=== PATIENT | female | born 1965 | race Caucasian/White ===

== ENCOUNTER 2016-06-14 11:09 | Day surgery (SDC) | payer OTHER ==
[~2016-06-14] VITALS: Ht 167.6 cm; Wt 68.0 kg
--- NOTE | 2016-06-14 07:21 | PCM.HPANE ---
Patient Data Surgeon Admitting Provider: Attending Provider:Geronimo Ruiz MD Primary Care Physician:Sonja Lawson MD Other Provider:[facility] Reason for Visit Colon Cancer Screening Ht/WT & BMI Body Mass Index Allergies Coded Allergies: Iodine and Iodide Containing Produc (Verified Allergy, Intermediate, ) Uncoded Allergies: SHELLFISH (Allergy, Severe, NAUSEA, 04/28/15) NOVACAINE (Allergy, Unknown, UNKNOWN, 04/27/15) Past Anesthesia History Anesthesia History: Denies:: Anesthesia Reactions, Malignant Hyperthermia Diabetes History Hx Diabetes?: No MRSA MRSA: No Medications Discontinued Scripts oxyCODONE 5 Mg Tablet5 Mg PO Q4H PRN For Moderate Pain #30 TABLET Prov:Karri Ward MD 04/28/15 Polyethylene Glycol 3350 (Miralax)17 Gm Powd.pack17 Gm PO DAILY #30 Prov:Karri Ward MD 04/28/15 History History of ENT Problems?: Yes Hx of Heart Problems?: No Hx of Respiratory Problem?: Yes Respiratory History: Positive for:: Asthma (MILD-HX OF) Denies:: Use of C-PAP Machine Hx Neurologic Problems?: No Hx of GI Problems?: Yes Hx of Problems?: No Female Hx: Denies:: Currently (S/P C/S X2) Skin History: Denies:: History Skin Disorders? Pressure Ulcers Hx Musculoskeletal Problems?: Yes Musculoskeletal History: Positive for:: Musculoskeletal Trauma (S/P FOOT RPR) Hx of Psycho/Social Problems?: Yes Psycho Social History: Positive for:: Anxiety (GENERAL ANXIETY DISORDER) Hx Depression Hx Surgeries?: Yes (C/S X2,HYST,APPY TONSILLECTOMY,FOOT RPR) Hx Any Other Health Problems?: Yes Other History: Denies:: Cancer Endocrine Disease Hospitalization Thyroid Disease Hx Diabetes: No Hx Alcohol Use: Yes (MINIMAL)Hx Substance Use: No Smoking Status: Never Smoker Have You Smoked inLast 12 mo: No Stop/Bang CONOR Risk Assessment: Low Risk, <3 Yes Risk Assessment Category Category 1A: Patient has history of documented sleep apnea, and HAS NOT received any narcotic, sedative or anesthesia administration during this stay. Category 1B: Patient has history of documented sleep apnea, and HAS received any narcotic , sedative or anesthesia administration during this stay Category 2: Patient has SUSPECTED Obstructive Sleep Apnea, and HAS received any narcotic , sedative or anesthesia administration during this stay. Category 3: Patient has SUSPECTED Obstructive Sleep Apnea and HAS NOT received narcotic, sedative or anesthesia administration during this stay. Category 4: Outpatient in Procedural Areas with known sleep apnea or who screen positive for High Risk via the STOP/BANG questionnaire. Exam Exam General Appearance: Alert, Oriented X3, Cooperative, No Acute Distress HEENT/AIRWAY: MP 2 Lungs: Clear to Auscultation, Normal Air Movement Heart: Exam Unremarkable, Regular Rate/Rhythm, No Murmurs/Rubs/Gallops Plan Impression Patient chart reviewed, patient interviewed and anesthestic plan with risks, benefits, and alternatives discussed, and informed consent obtained. NPO Status: greater than 8 hours for solids and greater than 2 hours for water ASA Physical Status: ASA2 Mod Systemic Disease Anesthetic Plan: MAC Bene/Risks/Altern/Consents: Yes HP Complete Prior to Induction: Yes Edwardo Lund MD Jun 14, 2016 07:21
[~2016-06-14 11:09] MED LIST: OXYC5TAB72 PO; POLY17PO6 PO
[2016-06-14] MEDS ORDERED: Propofol 10,000 mCg/mL 20 mL Inj ONE (11:10)
[2016-06-14] MEDS ORDERED: fentaNYL-PF 50 mCg/mL 2 mL Inj ONE (11:10)
[2016-06-14 11:35] VITALS: BP 120/81; PULSE 80; RESP 16; O2SAT 98
[2016-06-14] MEDS: Lactated Ringer's 1,000 ML IV ONE ×2 (11:45→12:05)
[2016-06-14] MEDS ORDERED: Lactated Ringer's 1,000 ML IV SCH (12:13)
--- NOTE | 2016-06-14 12:14 | PCM.ANEP1 ---
Post Anesthesia Phase 1 PACU Phase 1 Assessment Vital Signs Vital Signs Date Time Temp Pulse Resp B/P Pulse Ox O2 Delivery O2 Flow Rate FiO2 06/14/16 11:35 80 16 120/81 98 Room Air Anesthetic Administered: MAC Level of Alertness: Awake, talking CORNEJO's with Equal Strength: Yes Pain: No Nausea or Vomiting: No Oxygen Delivery: Nasal Cannula Lungs: Clear to Auscultation, Normal Air Movement Edwardo Lund MD Jun 14, 2016 12:14
[2016-06-14] MEDS ORDERED: Ondansetron 2 mg/mL 2 mL Inj IVPUSH PRN (12:15)
[2016-06-14] MEDS ORDERED: MetoCLOpramide 5 mg/mL 2 mL Inj IVPUSH PRN (12:15)
[2016-06-14 12:17] VITALS: BP 95/61; PULSE 77; RESP 14; O2SAT 97
[2016-06-14 12:26] VITALS: BP 97/65; PULSE 80; RESP 14; O2SAT 99
[2016-06-14 12:29] VITALS: BP 96/75; PULSE 75; RESP 14; O2SAT 98
--- NOTE | 2016-06-14 12:37 | PCM.ANEP2 ---
Post Anesthesia Evaluation ASA/CMS Post Anesthesia VS in Patient's Normal Range?: Yes Resp Stable; Airway Patent?: Yes CV Function & Hydration Stable: Yes Mental Status Recovered?: Yes Pain control Satisfactory?: Yes N/V Control Satisfactory?: Yes Edwardo Lund MD Jun 14, 2016 12:37
--- NOTE | 2016-06-14 13:09 | ENDO ---
[address] [address] ENDOSCOPY PROCEDURE PATIENT: CONRADO GARCIA : 1965 MR#: [id number] ADMIT: 06/14/2016 JOB ID: [id number] TYPE OF OPERATION: Colonoscopy with biopsy. PREOPERATIVE DIAGNOSIS(ES): Colorectal cancer. POSTOPERATIVE DIAGNOSIS(ES): 1. A 2 mm rectal polyp, removed by cold biopsy forceps. 2. Mild sigmoid diverticulosis. ANESTHESIA: Monitored anesthesia care. COMPLICATIONS: None. BLOOD LOSS: Minimal. DESCRIPTION OF PROCEDURE: After risks and benefits explained to the patient, informed consent was obtained. After anesthesia administered, colonoscope was then inserted from the rectum to the cecum. Mucosa carefully examined. Prep of the patient was excellent. After the procedure was done, the scope withdrawn, procedure terminated. FINDINGS: Upon inspection of the anus, no masses, hemorrhoids, ulcers, fissures that were seen. Throughout the entire examination, there was a 2 mm rectal polyp, removed by cold biopsy forceps. There was also some mild sigmoid diverticulosis. Retroflexion was normal. IMPRESSIONS: 1. A 2 mm rectal polyp, removed by cold biopsy forceps. 2. Mild sigmoid diverticulosis. RECOMMENDATIONS: High-fiber diet. If tubular adenoma, then next colonoscopy should be in five years.
--- NOTE | 2016-06-15 14:02 | PATH ---
SURGICAL PATHOLOGY Attending Physician:Geronimo Ruiz MD CASE STATUS: Signed Out PATIENT NAME: CONRADO GARCIA PID: [id number] : 1965 DATE COLLECTED:06/14/2016 21:15 SPECIMEN: Rectum, Biopsy CLINICAL HISTORY: 1). RECTAL POLYP FINAL DIAGNOSIS: 1.RECTAL POLYP: TUBULAR ADENOMA. ICD10 CODE D12.8 GROSS DESCRIPTION: The specimen is received in one formalin filled container labeled with the patient's name, sublabeled "rectal polyp" and consists of a 0.4 x 0.3 x 0.2 CM portion of tissue which is entirely submitted in one cassette. 06/14/2016 DAC MICRO DESCRIPTION: See diagnosis. ICD-9 CODES: CPT CODES: 1: 67827 Electronically Signed Out Delmy Cannon MD [facility] Pathology [facility] [address], [place] [address] Technical component performed at [facility], [facility] [address], [place], [address]
== END 2016-06-14 23:59 | disposition home or self-care (01) ==
LOC: END 11:09
PROVIDERS: ATTEND Internal Medicine Gastroenterology
DX: Z12.11 Encounter for screening for malignant neoplasm of colon (principal); D12.8 Benign neoplasm of rectum; K57.30 Diverticulosis of large intestine without perforation or abscess without bleeding; J45.909 Unspecified asthma, uncomplicated; F32.9 Major depressive disorder, single episode, unspecified; F41.1 Generalized anxiety disorder

== ENCOUNTER 2016-07-12 00:21 | Emergency (ER) | payer OTHER ==
[~2016-07-12] VITALS: Ht 167.6 cm; Wt 68.2 kg
[2016-07-12 00:36] VITALS: BP 106/76; PULSE 76; RESP 16; O2SAT 100
--- NOTE | 2016-07-12 01:28 | ED.REPORT ---
HPI-Allergic Reaction Date of Service Jul 12, 2016 ED Provider: Nader Ibrahim MD Patient is a 50 year old female who presents to the ED complaining of an allergic reaction that began at 11pm this evening. She states that her throat became scratchy and swollen, followed by numbness of her nose, upper lip, and throat. The patient took 2x Benadryl at 11:20pm, which improved her symptoms. She reports an itchy rash on her arms that she noticed several weeks ago, with unknown allergy trigger. Patient has not recently worn any gloves or long sleeves. She is concerned that it may be something in her quilting materials. She states that the rash is currently improved. Today she also developed itching of her ears and trunk. Patient reports new itching on her head since onset of symptoms tonight. The patient denies having hives or shortness of breath. The patient has allergy testing scheduled with her server systems administrator later this week. Nursing Notes Stated Complaint: ALLERGIC REACTION Chief Complaint: Allergic Reaction Nursing Notes Reviewed: Yes Allergies: Coded Allergies: Iodine and Iodide Containing Produc (Verified Allergy, Intermediate, ) Yeast (Verified Allergy, Unknown, 07/12/16) gluten (Verified Allergy, Unknown, 07/12/16) Uncoded Allergies: SHELLFISH (Allergy, Severe, NAUSEA, 04/28/15) NOVACAINE (Allergy, Unknown, UNKNOWN, 04/27/15) Scheduled Prednisone (PredniSONE) 20 Mg Tablet 20 MG PO BID General Time Seen by MD: 01:25 Chief Complaint Allergic reaction Hx Obtained From: Patient Arrived By: Walk-in Onset Occurred: 1 - 4 hours ago Symptom Duration: Since onset Location: : Abdomen: Arm left: Arm right Quality: Itching Recent Healthcare: No recent doctor visit, No recent hospitalization Similar Sx Previous: Yes Past Medical History Past Medical History allergies Reports: Asthma, GERD Reports: Depression Past Surgical History Reports: , Hysterectomy Smoking History Never Smoker Social History Alcohol Use: 1-3 per day Other Social History: Good social support, , Local resident Ambulatory Status Independent Review of Systems Ears / Nose / Throat: Reports: Throat pain (itchy), Throat swelling Respiratory: Denies: Shortness of breath GI: Denies: Dysphagia Skin: Reports Itching, Reports Rash Allergy / Immune: Reports: Itching, Denies: Hives Neurologic: Reports: Numbness Complete sys rev & neg: except as marked. Physical Exam Initial Vital Signs Vital Signs (First) Date Time Temp Pulse Resp B/P Pulse Ox O2 Delivery O2 Flow Rate FiO2 07/12/16 00:36 36.6 76 16 106/76 100 Room Air Initial VS: Reviewed, Vital signs normal Head / Eyes: Atraumatic, Normocephalic, PERRL ENT: Conjunctiva normal, No scleral icterus Neck: Supple, Full range of motion Abdomen / GI: Soft, Non-tender Extremities: Vascular intact, Neuro intact Neurologic: Alert, Oriented, Nonfocal Psychiatric: Mood/affect normal, Behavior normal, Normal thought content General/Constitutional: Awake, Alert, No acute distress Respiratory / Chest: Breath sounds NL, Breath sounds = bilat, No respiratory distress, No rales, No rhonchi, No wheezing, No stridor Skin: Warm, Dry Rash / Lesion Notes: Patchy cracked excoriated erythematous rash consistent with eczema or contact dermatitis preseont on the back of hands, ears, and neck. ENT: Airway patent, Mucous membranes moist, Pharynx NL Re-Eval/Medical Decision Med Decision/Clinical Course D1-year-old with an underlying subacute atopic/allergic process going on for the last several weeks presents now with much worse symptoms with diffuse itching and numbness and tingling inside her mouth and a little bit of swelling in her throat. She took Benadryl at home and her symptoms were improving by the time she arrived here. She gradually cleared of the acute symptoms. She was given additional prednisone, 40 mg now and then a prescription was written for 3 days. She will also continue Benadryl as needed. She also has subacute excoriated rash on the back or hands which could be a contact dermatitis or eczema. We could not elucidate any causative agent. She will use topical triamcinolone for this. She will follow-up with her regular doctor for allergy testing. Source of Hx: Old records Re-Evaluation/Progress : Time of Eval: 02:01 Patient Status: Condition improved Re-Evaluation/Progress Note: Rechecked the patient, who is improved after medication. She is eager to return home. Patient understands and agrees with the plan to be discharged home. Discharge instructions and follow-up discussed. She will be discharged on prednisone and should discuss this with her doctor prior to allergy testing. All questions were addressed. Return to the ED warnings given. Counseled Regarding: Diagnosis, Need for follow-up, When/why to return to ED Discharge & Departure Primary Impression: Allergic reaction Encounter type: initial encounter Qualified Code: T78.40XA - Allergy, unspecified, initial encounter Disposition: Home Discharge Condition All VS Reviewed: Yes Condition: Stable Patient Instructions: Allergies (ED) Additional Instructions: The cause of your allergic response is not known. Recommend that you continue Benadryl (diphenhydramine) 25-50 mg 3 times a day as needed, to be purchased [id number]. Prednisone 20 mg by mouth twice a day for 3 days, #6 prescription written. You received 40 mg in the emergency room. Triamcinolone cream 0.1%, apply to the rash on your hands. Continue follow-up with your doctor regarding your allergies. Referrals: Sonja Lawson MD (PCP) Leonora Siegel ND (Family) Kevin Attestation Portions of this note were transcribed by Sharla Mo. I, Dr. Ibrahim personally performed the history, physical exam and medical decision-making; I reviewed and confirmed the accuracy of the information in the transcribed note. Signed by: Kevin Ayon, 07/12/2016 0215 copies to: Leonora Siegel ND; Sonja Lawson MD, Howard L MD Jul 12, 2016 01:28 Sharla Mo Jul 12, 2016 01:35
[2016-07-12] MEDS ORDERED: predniSONE 20 mg Tablet PO ONE (01:40)
[2016-07-12] MEDS ORDERED: PRE20 PO (02:03)
[2016-07-12] MEDS ORDERED: Triamcinolone 0.1% 30 Gm Cream TOPICAL ONE (02:05)
[2016-07-12 02:16] VITALS: BP 122/64; PULSE 68; RESP 14; O2SAT 97
== END 2016-07-12 02:18 | disposition home or self-care (01) ==
LOC: SED 00:21
DX: T78.40XA Allergy, unspecified, initial encounter (principal); X58.XXXA Exposure to other specified factors, initial encounter; Y93.89 Activity, other specified; Y92.89 Other specified places as the place of occurrence of the external cause; Y99.8 Other external cause status; J45.909 Unspecified asthma, uncomplicated; K21.9 Gastro-esophageal reflux disease without esophagitis; Z88.8 Allergy status to other drugs, medicaments and biological substances; Z91.018 Allergy to other foods